=== PATIENT | female | born 1970 | race Caucasian/White ===

== ENCOUNTER → 2025-07-31 | Emergency (ER) | payer OTHER ==
[~2025-07-31] VITALS: Ht 157.5 cm; Wt 54.4 kg
[~2025-07-31] MED LIST: CLINDAMYCIN PHOSPHATE 150 MG/ML (300mg) ONE; CLINDAMYCIN PHOSPHATE 150 MG/ML (600mg) IM ONE; CLINDAMYCIN PHOSPHATE 150 MG/ML (900mg) ONE; LIDOCAINE HCL 1% 10ML VIAL ONE; TETANUS & DIPHTHERIA TOX,ADULT 0.5 ML VIAL IM ONE
[2025-07-31 15:16] VITALS: BP 126/84; O2SAT 100
== END | disposition home or self-care (01) ==
LOC: ER 13:53
DX: S51.021A Laceration with foreign body of right elbow, initial encounter (principal); W45.8XXA Other foreign body or object entering through skin, initial encounter; Y93.89 Activity, other specified; Y92.89 Other specified places as the place of occurrence of the external cause
CPT/HCPCS: 90471; 90714; J1670